=== PATIENT | female | born 1990 | race Caucasian/White ===

== ENCOUNTER 2018-12-18 18:14 | Emergency (ER) | payer OTHER ==
[~2018-12-18] VITALS: Ht 152.4 cm; Wt 47.6 kg
== END 2018-12-18 20:36 | disposition home or self-care (01) ==
LOC: ED 18:14
DX: S63.502A Unspecified sprain of left wrist, initial encounter (principal); H00.014 Hordeolum externum left upper eyelid; Z88.8 Allergy status to other drugs, medicaments and biological substances; X50.1XXA Overexertion from prolonged static or awkward postures, initial encounter; Y93.E1 Activity, personal bathing and showering; Y92.89 Other specified places as the place of occurrence of the external cause; Y99.0 Civilian activity done for income or pay